=== PATIENT | male | born 1940 | race Caucasian/White ===

== ENCOUNTER → 2017-08-17 | Outpatient (CLI) | payer MEDICARE, BC ==
[2015-09-16 12:10] VITALS: BP 142/80
[~2017-08-17] MED LIST: ALDACTONE25 MG PO; ALLOPURINOL300 MG PO; ALTOCOR40 MG PO; AMITRIPTYLINE25 MG PO; ASPIR LOW81 MG PO; CARBIDOPA & LEV1 TA1 PO; DEMADEX20 MG PO; NYSTATIN CREAM15 GM TP; TYLENOL 325MG325 MG PO; VITAMIN B11000 MCG/M IM
[2017-08-17 14:45] LABS: ALBUMIN 4.3 g/dL (3.5-5.0); BUN/CREATININE RATIO 27.4 (6.0-26.0); CALCIUM 9.7 mg/dL (8.4-10.2); POTASSIUM 4.5 mmol/L (3.6-5.0); TOTAL BILIRUBIN 0.5 mg/dL (0.2-1.3); TOTAL PROTEIN 8.2 g/dL (6.3-8.2)
== END ==
LOC: LAB 14:06
PROVIDERS: Internal Medicine
DX: I10 Essential (primary) hypertension (principal)

== ENCOUNTER → 2017-11-18 | Outpatient (CLI) | payer MEDICARE, BC ==
[2015-09-16 12:10] VITALS: BP 142/80
[2017-11-18 16:02] LABS: EOS # 0.1 (0.04-0.40); EOS % 1.3 % (0.0-4.0); LYMPH# 1.8 (1.50-4.00); MEAN CELL VOLUME 95 fl (78-100); MEAN CORPUSCULAR HEMOGLOBIN 30 pg (27-31); MEAN CORPUSCULAR HGB CONC 32 g/dL (33-37); MONO # 0.8 (0.20-0.80); NEU # 4.4 (1.40-6.50); PLATELET COUNT 328 K/mm3 (130-400); RED BLOOD COUNT 4.34 M/mm3 (4.20-5.60); RED CELL DISTRIBUTION WIDTH 14.1 % (11.5-14.5); WHITE BLOOD COUNT 7.1 K/mm3 (4.8-10.8)
[2017-11-18 16:14] LABS: ALBUMIN 4.3 g/dL (3.5-5.0); BUN/CREATININE RATIO 20.3 (6.0-26.0); CALCIUM 9.8 mg/dL (8.4-10.2); POTASSIUM 3.9 mmol/L (3.6-5.0); TOTAL BILIRUBIN 0.4 mg/dL (0.2-1.3); TOTAL PROTEIN 8.1 g/dL (6.3-8.2)
[2017-11-18 18:29] LABS: ERYTHROCYTE SEDIMENTATION RATE 60 mm/hr (0-20)
== END ==
LOC: LAB 15:09
PROVIDERS: Internal Medicine
DX: R73.02 Impaired glucose tolerance (oral) (principal); E78.2 Mixed hyperlipidemia; G20 Parkinson's disease; I27.81 Cor pulmonale (chronic); E03.9 Hypothyroidism, unspecified